=== PATIENT | female | born 1985 | race American Indian/Alaskan Native ===

== ENCOUNTER 2018-10-23 09:26 | Emergency (ER) | payer OTHER ==
[2018-10-23 09:32] VITALS: BP 136/88
--- NOTE | 2018-10-23 10:54 | Emergency Department Report ---
ED Upper Extremity Inj HPI - General Chief Complaint: Extremity Injury, Upper Stated Complaint: R HAND PAIN/SWOLLEN Time Seen by Provider: 10/23/18 10:13 Source: patient Mode of arrival: Ambulatory Limitations: No Limitations - History of Present Illness Initial Comments: 33-year-old female presents to ED with complaint of pain to right thumb after hitting it one week ago. Complaint: Injury to:: right, finger -: week(s) (1) Other Injuries: none Improves With: immobilization Worsens With: movement of extremity Context: direct blow Associated Symptoms: denies other symptoms Treatments Prior to Arrival: bandage - Related Data Previous Rx's Medication Instructions Recorded Last Taken Type Naproxen [Naprosyn] 500 mg PO BID #20 tablet 10/23/18 Unknown Rx Allergies Allergy/AdvReac Type Severity Reaction Status Date / Time metronidazole [From Flagyl] Allergy Hives Verified 10/23/18 09:32 rifampin Allergy Hives Verified 10/23/18 09:32 ED Review of Systems ROS: Stated complaint: R HAND PAIN/SWOLLEN Other details as noted in HPI Comment: All other systems reviewed and negative Musculoskeletal: as per HPI ED Past Medical Hx - Past Medical History Previous Medical History?: Yes Hx Hypertension: Yes - Surgical History Past Surgical History?: Yes Additional Surgical History: C section x 4. hernia repair. gastric bypass - Social History Smoking Status: Never Smoker - Medications Home Medications: Home Medications Medication Instructions Recorded Confirmed Last Taken Type Naproxen [Naprosyn] 500 mg PO BID #20 tablet 10/23/18 Unknown Rx ED Physical Exam - General Limitations: No Limitations General appearance: alert, in no apparent distress - Head Head exam: Present: atraumatic, normocephalic - Eye Eye exam: Present: normal appearance - ENT ENT exam: Present: mucous membranes moist - Neck Neck exam: Present: normal inspection - Respiratory Respiratory exam: Present: normal lung sounds bilaterally. Absent: respiratory distress - Cardiovascular Cardiovascular Exam: Present: regular rate, normal rhythm - GI/Abdominal GI/Abdominal exam: Absent: distended - Extremities Exam Extremities exam: Present: tenderness (right thumb), other (no deformity or swelling noted to right thumb) - Neurological Exam Neurological exam: Present: alert, oriented X3 - Psychiatric Psychiatric exam: Present: normal affect, normal mood - Skin Skin exam: Present: warm, dry, intact, normal color. Absent: rash ED Course Vital Signs 10/23/18 09:30 Temperature 98.1 F Pulse Rate 84 Respiratory 16 Rate Blood Pressure 136/88 O2 Sat by Pulse 100 Oximetry ED Medical Decision Making - Radiology Data Radiology results: report reviewed, image reviewed - Medical Decision Making - xrays negative - velcro thumb spica splint applied - advised ortho f/u - Differential Diagnosis fracture, sprain Critical care attestation.: If time is entered above; I have spent that time in minutes in the direct care of this critically ill patient, excluding procedure time. ED Disposition Clinical Impression: Contusion of thumb, right Disposition: DC-01 TO HOME OR SELFCARE Is pt being admited?: No Condition: Stable Instructions: Finger Sprain (ED) Prescriptions: Naproxen [Naprosyn] 500 mg PO BID #20 tablet Referrals: SHU TRUONG MD [Staff Physician] - 3-5 Days Time of Disposition: 11:28
--- NOTE | 2018-10-23 11:18 | XRay Report ---
RIGHT FINGERS, 3 views: History: Thumb injury. The bony architecture is intact. Bony alignment is normal. No soft tissue abnormalities are seen. The joint spaces appear preserved. IMPRESSION: Normal right thumb.
== END 2018-10-23 11:40 | disposition home or self-care (01) ==
LOC: ED 09:26
DX: S60.011A Contusion of right thumb without damage to nail, initial encounter (principal); I10 Essential (primary) hypertension; Z88.8 Allergy status to other drugs, medicaments and biological substances; W22.8XXA Striking against or struck by other objects, initial encounter; Y93.89 Activity, other specified; Y92.89 Other specified places as the place of occurrence of the external cause; Y99.8 Other external cause status
CPT/HCPCS: 99283

== ENCOUNTER 2021-09-26 14:02 | Emergency (ER) | payer OTHER ==
[2021-09-26] MEDS ORDERED: VENLAFAXINE 75 MG TAB PO ONE (15:25)
--- NOTE | 2021-09-26 15:29 | Emergency Department Report ---
HPI - General Chief Complaint: Psych Time Seen by Provider: 09/26/21 15:17 - HPI HPI: The patient is here mainly because she ran out of her usual 150 mg daily Effexor 2 months ago and for the last 1 has been feeling very depressed and sad and tearful as well as having some panic attacks. Usually her Effexor controls this but she has not been able to get a hold of the medication. She has had thoughts of hurting herself but does not have a plan. She denies nausea vomiting fever chills chest pain focal weakness headache or any other associated symptoms other than diarrhea for the last month that she gets about 2-3 episodes a day. She has a history of gastroparesis. She denies abdominal pain. ED Past Medical Hx - Past Medical History Hx Hypertension: Yes Hx Diabetes: Yes Additional medical history: chronic diarrhea, gastroporesis, anemia, depression, panic disorder - Surgical History Additional Surgical History: C section x 4. hernia repair. gastric bypass - Social History Smoking Status: Current Every Day Smoker Substance Use Type: None - Medications Home Medications: Home Medications Medication Instructions Recorded Confirmed Last Taken Type Ciprofloxacin HCl [Ciprofloxacin 750 mg PO BID 3 Days #6 tab 09/26/21 Unknown Rx TAB] Loperamide [Imodium] 4 mg PO ONCE 3 Days #12 capsule 09/26/21 Unknown Rx Venlafaxine HCl [Effexor Xr] 150 mg PO QDAC 30 Days #30 cap 09/26/21 Unknown Rx ED Review of Systems ROS: Stated complaint: DIARRHEA Other details as noted in HPI Other: All other systems reviewed and negative. Physical Exam - Physical Exam Physical Exam: Physical Exam: Constitutional: AAOX3. No acute distress. No diaphoresis. HENT: Normocephalic. Pupils equal and reactive. No throat edema or erythema. Neck: No neck rigidity or tenderness. Cardiovascular: Heart sounds: No murmur. Normal rate and regular rhythm. Pulses: Intact distal pulses. Lungs: No wheezing or rales. Chest wall: No tenderness. Abdominal: No distension. No mass/pulsatile mass. No abdominal tenderness, guarding nor rebound. Back: No CVA TTP. Musculoskeletal: Normal range of motion. No edema, No calf TTP. Skin: Warm and dry. Neurological: Alert and oriented to person, place, and time. Psychiatric: Mood and affect normal. Normal cognition and memory. Normal judgement. The patient is alert active and oriented x3 and making good eye contact. The mood is depressed with congruent affect. The patient does not seem under the influence of any psychoactive substances. The thought pattern is relevant and coherent. The patient admits suicidal ideations but does not think she could carry out. ED Course - Reevaluation(s) Reevaluation #1: 09/26/21 16:50 Patient's labs are back. She has a history of anemia also and her labs showed so. She has been hemodynamically stable in the emergency department and tolerating oral fluids. I think she probably has some mild colitis and will give her antibiotics as well as her regular Effexor. She will follow-up with her PCP or return if any other issues arise. ED Medical Decision Making - Lab Data Result diagrams: 09/26/21 15:25 09/26/21 15:25 Critical care attestation.: If time is entered above; I have spent that time in minutes in the direct care of this critically ill patient, excluding procedure time. ED Disposition Clinical Impression: Depression, Panic attacks, Colitis Disposition: 01 HOME / SELF CARE / HOMELESS Is pt being admited?: No Does the pt Need Aspirin: No Condition: Stable Instructions: Panic Attack, [id number], Colitis, Living With Depression Prescriptions: Ciprofloxacin HCl [Ciprofloxacin TAB] 750 mg PO BID 3 Days #6 tab Venlafaxine HCl [Effexor Xr] 150 mg PO QDAC 30 Days #30 cap Loperamide [Imodium] 4 mg PO ONCE 3 Days #12 capsule Print Language: COLOMBIAN
[2021-09-26 16:04] LABS: Basophils % (Auto) 0.3 % (0.0-1.8); Hematocrit 28.8 % (30.3-42.9); Hemoglobin 8.7 gm/dl (10.1-14.3); Lymphocytes # (Auto) 0.6 K/mm3 (1.2-5.4); Lymphocytes % (Auto) 18.3 % (13.4-35.0); Mean Corpuscular HGB Conc 30 % (30-34); Monocytes # (Auto) 0.3 K/mm3 (0.0-0.8); Platelet Count 355 K/mm3 (140-440)
[2021-09-26 16:09] LABS: Alanine Aminotransferase 42 units/L (7-56); Albumin 4.4 g/dL (3.9-5); BUN/Creatinine Ratio 14; Blood Urea Nitrogen 11 mg/dL (7-17); Calcium 9.6 mg/dL (8.4-10.2); Hemolysis Index 1; Mean Corpuscular Volume 67 fl (79-97)
[2021-09-26 17:10] VITALS: BP 136/85
== END 2021-09-26 17:38 | disposition home or self-care (01) ==
LOC: ED 14:02
DX: F32.9 Major depressive disorder, single episode, unspecified (principal); K52.9 Noninfective gastroenteritis and colitis, unspecified; F41.0 Panic disorder [episodic paroxysmal anxiety]; I10 Essential (primary) hypertension; D64.9 Anemia, unspecified; E11.43 Type 2 diabetes mellitus with diabetic autonomic (poly)neuropathy; K31.84 Gastroparesis; Z98.890 Other specified postprocedural states; F17.290 Nicotine dependence, other tobacco product, uncomplicated
CPT/HCPCS: 36415; 80053; 80320; 85025; 99284; G0480

== ENCOUNTER 2021-11-03 13:15 | Emergency (ER) | payer OTHER ==
[2021-11-03 15:23] LABS: Basophils % (Auto) 0.8 % (0.0-1.8); Eosinophils # (Auto) 0.1 K/mm3 (0.0-0.4); Eosinophils % (Auto) 3.3 % (0.0-4.3); Hematocrit 27.2 % (30.3-42.9); Hemoglobin 8.1 gm/dl (10.1-14.3); Lymphocytes # (Auto) 1.1 K/mm3 (1.2-5.4); Lymphocytes % (Auto) 26.6 % (13.4-35.0); Mean Corpuscular HGB Conc 30 % (30-34); Mean Corpuscular Volume 65 fl (79-97); Mean Platelet Volume 8.8 fl (6-12); Monocytes # (Auto) 0.3 K/mm3 (0.0-0.8); Platelet Count 428 K/mm3 (140-440); Red Cell Distribution Width 21.4 % (13.2-15.2)
[2021-11-03 15:47] LABS: Alanine Aminotransferase 14 units/L (7-56); Albumin 4.2 g/dL (3.9-5); Blood Urea Nitrogen 14 mg/dL (7-17); Calcium 9.2 mg/dL (8.4-10.2); Hemolysis Index 15
[2021-11-03 15:54] LABS: BUN/Creatinine Ratio 20
[2021-11-03] MEDS ORDERED: ONDANSETRON 4 MG/2 ML INJ IV ONE (19:43)
[2021-11-03] MEDS ORDERED: MORPHINE 4 MG/1 ML INJ IM ONE (19:43)
[2021-11-03] MEDS ORDERED: diphenhydrAMINE 50 MG/ML VIAL IV ONE (20:57)
--- NOTE | 2021-11-03 21:24 | Emergency Department Report ---
ED Abdominal Pain HPI - General Chief Complaint: Abdominal Pain Stated Complaint: ABDOMINAL PAIN Time Seen by Provider: 11/03/21 19:23 Source: EMS Mode of arrival: Stretcher Limitations: No Limitations - History of Present Illness Initial Comments: 36-year-old female with past medical history of gastroparesis, diabetes, hypertension reports to the ER with complaints of abdominal pain for 3 days with nausea vomiting and diarrhea. Patient denies fever and chills. Patient denies any urinary symptoms. Patient does report also having vaginal irritation with rash and itching. Denies vaginal bleeding vaginal discharge and denies vaginal pain. Patient reports no other acute symptoms at this time. Severity scale (0 -10): 8 - Related Data Previous Rx's Medication Instructions Recorded Last Taken Type Ciprofloxacin HCl [Ciprofloxacin 750 mg PO BID 3 Days #6 tab 09/26/21 Unknown Rx TAB] Loperamide [Imodium] 4 mg PO ONCE 3 Days #12 capsule 09/26/21 Unknown Rx Venlafaxine HCl [Effexor Xr] 150 mg PO QDAC 30 Days #30 cap 09/26/21 Unknown Rx Fluconazole 150 mg PO ONCE 1 Days #1 tab 11/03/21 Unknown Rx Ondansetron [Zofran Odt] 4 mg PO Q12HR PRN 3 Days #6 11/03/21 Unknown Rx tab.rapdis Allergies Allergy/AdvReac Type Severity Reaction Status Date / Time metoclopramide [From Reglan] Allergy Hives Verified 11/03/21 13:17 metronidazole [From Flagyl] Allergy Hives Verified 10/23/18 09:32 rifampin Allergy Hives Verified 10/23/18 09:32 ED Review of Systems ROS: Stated complaint: ABDOMINAL PAIN Other details as noted in HPI Comment: All other systems reviewed and negative Gastrointestinal: abdominal pain, nausea, vomiting, diarrhea Genitourinary: other (Vaginal irritation with itching.) ED Past Medical Hx - Past Medical History Previous Medical History?: Yes Hx Hypertension: Yes Hx Diabetes: Yes Additional medical history: chronic diarrhea, gastroporesis, anemia, depression, panic disorder - Surgical History Additional Surgical History: C section x 4. hernia repair. gastric bypass - Social History Smoking Status: Current Every Day Smoker Substance Use Type: None - Medications Home Medications: Home Medications Medication Instructions Recorded Confirmed Last Taken Type Ciprofloxacin HCl [Ciprofloxacin 750 mg PO BID 3 Days #6 tab 05/30/22 Unknown Rx TAB] Loperamide [Imodium] 4 mg PO ONCE 3 Days #12 capsule 09/26/21 Unknown Rx Venlafaxine HCl [Effexor Xr] 150 mg PO QDAC 30 Days #30 cap 09/26/21 Unknown Rx Fluconazole 150 mg PO ONCE 1 Days #1 tab 11/03/21 Unknown Rx Ondansetron [Zofran Odt] 4 mg PO Q12HR PRN 3 Days #6 11/03/21 Unknown Rx tab.rapdis ED Physical Exam - General Limitations: No Limitations General appearance: alert, in no apparent distress - Head Head exam: Present: atraumatic, normocephalic - Eye Eye exam: Present: normal appearance - ENT ENT exam: Present: mucous membranes moist - Neck Neck exam: Present: normal inspection - Respiratory Respiratory exam: Present: normal lung sounds bilaterally. Absent: respiratory distress - Cardiovascular Cardiovascular Exam: Present: regular rate, normal rhythm. Absent: systolic murmur, diastolic murmur, rubs, gallop - GI/Abdominal GI/Abdominal exam: Present: soft, tenderness, normal bowel sounds. Absent: distended, guarding, rebound, rigid - External exam: Present: other (Rashes noted in the vaginal area bilateral near its labia no visible discharge, vagina no other lesions or ulcers noted on examchaperone was present) - Extremities Exam Extremities exam: Present: normal inspection - Back Exam Back exam: Present: normal inspection - Neurological Exam Neurological exam: Present: alert, oriented X3 - Psychiatric Psychiatric exam: Present: normal affect, normal mood - Skin Skin exam: Present: warm, dry, intact, normal color. Absent: rash ED Course Vital Signs 11/03/21 11/03/21 13:15 23:14 Temperature 98.7 F Pulse Rate 90 84 Respiratory 16 12 Rate Blood Pressure 146/88 139/82 [Left] O2 Sat by Pulse 99 100 Oximetry ED Medical Decision Making - Lab Data Result diagrams: 11/03/21 13:43 11/03/21 13:43 - Medical Decision Making 36-year-old female with past medical history of gastroparesis, diabetes, hypertension reports to the ER with complaints of abdominal pain for 3 days with nausea vomiting and diarrhea. Patient denies fever and chills. Patient denies any urinary symptoms. Patient does report also having vaginal irritation with rash and itching. Denies vaginal bleeding vaginal discharge and denies vaginal pain. Patient reports no other acute symptoms at this time On physical exam there is yeast like rash in the vagina area clay miller was present. Labs ordered, IV medicine, No acute findings and labsCBC, CMP negative for no acute process. No imaging is warranted at this time. As patient is having generalized abdominal discomfort with no acute abdominal signs noted. Patient reports imp rovement with IV fluids pain medicine and Zofran.. Patient is stable for discharge home with follow-up primary care provider. Patient given Zofran for nausea and a Diflucan for the yeast infection. Patient agrees with plan of care and verbalized understanding. Vital Signs 11/03/21 11/03/21 13:15 23:14 Temperature 98.7 F Pulse Rate 90 84 Respiratory 16 12 Rate Blood Pressure 146/88 139/82 [Left] O2 Sat by Pulse 99 100 Oximetry Labs 11/03/21 11/03/21 11/03/21 13:43 13:43 19:47 WBC 4.1 L RBC 4.20 Hgb 8.1 L Hct 27.2 L MCV 65 L MCH 19 L MCHC 30 RDW 21.4 H Plt Count 428 Lymph % (Auto) 26.6 [place] % (Auto) 8.0 H Eos % (Auto) 3.3 Baso % (Auto) 0.8 Lymph # (Auto) 1.1 L [place] # (Auto) 0.3 Eos # (Auto) 0.1 Baso # (Auto) 0.0 Seg Neutrophils % 61.3 Seg Neutrophils # 2.5 Sodium 143 Potassium 4.1 Chloride 107.5 H Carbon Dioxide 24 Anion Gap 16 BUN 14 Creatinine 0.7 Estimated GFR > 60 BUN/Creatinine Ratio 20 Glucose 81 Calcium 9.2 Total Bilirubin 0.30 AST 30 ALT 14 Alkaline Phosphatase 88 Total Protein 7.8 Albumin 4.2 Albumin/Globulin Ratio 1.2 Lipase 45 Urine Color Yellow Urine Turbidity Clear Urine pH 6.0 Ur Specific [place] 1.020 Urine Protein <30 mg dl Urine Glucose (UA) Negative Urine Ketones 5 Urine Blood Negative Urine Nitrite Negative Ur Reducing Substances Not Reportable Urine Bilirubin Negative Urine Ictotest Not Reportable Urine Urobilinogen 0.0 Ur Leukocyte Esterase Negative Urine WBC (Auto) < 1.0 Urine RBC (Auto) 1.0 Urine Mucus 3+ Urine HCG, Qual Negative Critical care attestation.: If time is entered above; I have spent that time in minutes in the direct care of this critically ill patient, excluding procedure time. ED Disposition Clinical Impression: Gastroparesis, Vaginal yeast infection Abdominal pain Qualifiers: Abdominal location: generalized Qualified Code(s): R10.84 - Generalized abdominal pain Disposition: 01 HOME / SELF CARE / HOMELESS Is pt being admited?: No Condition: Stable Instructions: Vaginitis, [id number], Abdominal Pain, Adult, [id number], Gastroparesis, Abdominal Pain (ED) Additional Instructions: Do not take fluconazole and Zofran at the same time. Once you take your fluconazole tablet wait at least 3 hours before taking Zofran. Prescriptions: Fluconazole 150 mg PO ONCE 1 Days #1 tab Ondansetron [Zofran Odt] 4 mg PO Q12HR PRN 3 Days #6 tab.rapdis PRN Reason: Nausea And Vomiting Referrals: PRIMARY CARE, [Primary Care Provider] - 3-5 Days Time of Disposition: 22:22
[2021-11-03 21:44] LABS: Mucus,Urine 3+ /HPF; WBC,Urine < 1.0 /HPF (0.0-6.0)
[2021-11-03 21:56] LABS: Color,Urine Yellow (Yellow)
[2021-11-03 21:57] LABS: Bilirubin,Urine Negative (Negative)
[2021-11-03 21:58] LABS: Blood,Urine Negative (Negative); HCG Qualitative,Urine Negative (Negative); Protein,Urine <30 mg dL mg/dL (Negative)
[2021-11-03] MEDS ORDERED: HYDROcodone/ACETAMINOPHEN 5-325 MG TAB PO ONE (22:19)
[2021-11-03 23:15] VITALS: BP 139/82
== END 2021-11-03 23:14 | disposition home or self-care (01) ==
LOC: ED 13:15
DX: K31.84 Gastroparesis (principal); B37.3 Candidiasis of vulva and vagina; R10.9 Unspecified abdominal pain; I10 Essential (primary) hypertension; E11.9 Type 2 diabetes mellitus without complications; F17.200 Nicotine dependence, unspecified, uncomplicated; Z91.09 Other allergy status, other than to drugs and biological substances; Z79.899 Other long term (current) drug therapy
CPT/HCPCS: 36415; 80053; 81001; 81025; 83690; 85025; 96372; 96374; 96375; 99284; J1200; J2270; J2405